=== PATIENT | female | born 1990 | race Hispanic/Latino ===

== ENCOUNTER → 2024-07-03 | Outpatient (CLI) | payer MEDICAID ==
[2024-07-03 17:05] LABS: CREATININE 0.6 mg/dL (0.5-1.0); POTASSIUM 3.9 mmol/L (3.5-5.1)
== END | disposition home or self-care (01) ==
LOC: LAB 11:51
PROVIDERS: ATTEND Physician Assistant
DX: I47.10 Supraventricular tachycardia, unspecified (principal)
CPT/HCPCS: 36415; 80048; 83735

== ENCOUNTER 2024-07-27 07:31 | Day surgery (SDC) | payer MEDICAID ==
[~2024-07-27] VITALS: Ht 154.9 cm; Wt 69.5 kg
[2024-07-27] VITALS (13 sets, daily range): BP systolic 100–133; BP diastolic 61–88; PULSE 57–72; RESP 15–18; TEMP 97.1–97.9
[~2024-07-27 07:31] MED LIST: 0.9%NACL 1000ML 1,000 ML IV ONE; ALPR2TAB7 PO; FERS325 PO; FLUD0.1T2 PO; IBUP-2070 PO; PANT40TA54 PO; SENN8.6T20 PO; [UNRECOGNIZED DRUG - CODE] PO
[2024-07-27] MEDS ORDERED: FENTanyl CITRate PF 50 MCG/1 ML 2ML VIAL ONE (10:01)
[2024-07-27] MEDS ORDERED: proPOFol 10 MG/ML 20ML VIAL IV ONE ×2 (10:02)
[2024-07-27] MEDS ORDERED: ondanSETRON 4MG INJ ONE (10:02)
== END 2024-07-27 11:40 | disposition home or self-care (01) ==
LOC: DAH 07:31 → ENDO 07:31
PROVIDERS: ATTEND Surgery
DX: R10.13 Epigastric pain (principal); K29.50 Unspecified chronic gastritis without bleeding; K22.89 Other specified disease of esophagus; K44.9 Diaphragmatic hernia without obstruction or gangrene; K21.9 Gastro-esophageal reflux disease without esophagitis; M79.7 Fibromyalgia; F41.9 Anxiety disorder, unspecified; I10 Essential (primary) hypertension; F32.A Depression, unspecified; J45.909 Unspecified asthma, uncomplicated; G43.909 Migraine, unspecified, not intractable, without status migrainosus; I47.10 Supraventricular tachycardia, unspecified; M19.90 Unspecified osteoarthritis, unspecified site; F43.10 Post-traumatic stress disorder, unspecified; G47.00 Insomnia, unspecified; Z98.51 Tubal ligation status; Z79.899 Other long term (current) drug therapy
CPT/HCPCS: 81025; 43239; J3010; J7030; J2704 ×2; J2405; A4620; A4215; J3490

== ENCOUNTER 2024-08-31 06:30 | Observation (INO) | payer MEDICAID ==
[2024-08-28 10:09] LABS: BASOPHILS # (AUTO) 0.02 K/uL (0.00-0.20); BASOPHILS % (AUTO) 0.5 % (0.0-5.0); EOSINOPHILS # (AUTO) 0.16 K/uL (0.00-0.70); EOSINOPHILS % (AUTO) 3.6 % (0.0-8.0); HEMATOCRIT 39.5 % (36-48); IMMATURE GRANULOCYTE ABSOLUTE 0.02 K/uL (0-1); LYMPHOCYTES # (AUTO) 1.1 K/uL (1.0-4.8); MEAN CORPUSCULAR HEMOGLOBIN 28.6 pg (27.0-33.0); MEAN CORPUSCULAR HGB CONC 32.4 g/dL (32.0-36.0); MEAN CORPUSCULAR VOLUME 88.4 fL (79-99); MONOCYTES # (AUTO) 0.3 K/uL (0.1-1.0); MONOCYTES % (AUTO) 6.1 % (3.0-13.0); NEUTROPHILS # (AUTO) 2.9 K/uL (1.8-7.7); NEUTROPHILS % (AUTO) 65.3 % (40.0-77.0); PLATELET COUNT (AUTO) 213 K/uL (130-400); RED BLOOD CELL COUNT(AUTO) 4.47 MIL/uL (4.00-5.50); WHITE BLOOD COUNT (AUTO) 4.4 K/uL (4.8-10.8)
[2024-08-28 10:17] LABS: CREATININE 0.5 mg/dL (0.5-1.0); POTASSIUM 3.9 mmol/L (3.5-5.1)
[2024-08-28 10:19] LABS: INR 0.97 (0.85-1.15); PROTHROMBIN TIME 10.3 SEC (9.6-11.6)
[2024-08-28 10:20] LABS: PARTIAL THROMBOPLASTIN TIME 28.6 SEC (26.3-35.5)
[2024-08-28 10:21] VITALS: BP 135/78; PULSE 75; RESP 17; TEMP 98.1
[~2024-08-31] VITALS: Ht 154.9 cm; Wt 66.9 kg
[2024-08-31] VITALS (33 sets, daily range): BP systolic 105–139; BP diastolic 62–97; PULSE 67–102; RESP 12–18; TEMP 97.1–98.5; O2SAT 94–98
[~2024-08-31 06:30] MED LIST changes: -0.9%NACL 1000ML 1,000 ML IV ONE; +PROP60TA20 PO
[2024-08-31] MEDS: ceFAZolin SODIUM 2 GM VIAL ONE (07:05)
[2024-08-31] MEDS: acetaMINOPHEN 100 ML ONE ×2 (08:13→13:25)
[2024-08-31] MEDS: LACTATED RINGERS 1000ML 1,000 ML IV ONE (08:13)
[2024-08-31] MEDS: GABAPENTIN 300 MG CAPSULE ONE ×2 (08:13→13:34)
[2024-08-31] MEDS ORDERED: LIDOCAINE PF 100MG/5ML (2%) SYRINGE 5ML ONE (09:18)
[2024-08-31] MEDS ORDERED: rocuRONium bROMide 10MG/1ML 5ML VL ONE (09:18)
[2024-08-31] MEDS ORDERED: proPOFol 10 MG/ML 20ML VIAL IV ONE (09:18)
[2024-08-31] MEDS ORDERED: FENTanyl CITRate PF 50 MCG/1 ML 2ML VIAL ONE (09:19)
[2024-08-31] MEDS ORDERED: ketaMINE 50MG/ML SYRINGE 50 MG/ML DISP.SYRIN ONE (09:20)
[2024-08-31] MEDS: SCOPOLAMINE HYDROBROMIDE 1 EACH ADH..PATCH TD ONE (10:10)
[2024-08-31] MEDS: FAMOTIDINE 20MG VIAL IV ONE (10:10)
[2024-08-31] MEDS ORDERED: ADENOSINE 6MG VIAL IV ONE (10:19)
[2024-08-31] MEDS ORDERED: MIDAZOLAM HCL 1 MG/ML 2ML VIAL ONE (10:24)
[2024-08-31] MEDS ORDERED: ePHEDrine SULFate 50 MG/ML AMPULE ONE (10:45)
[2024-08-31] MEDS: ceFAZolin SODIUM 2 GM VIAL IVPB ONE (11:00)
[2024-08-31] MEDS ORDERED: NEOSTIGMINE METHYLSULFATE 1MG/ML IV ONE (11:07)
[2024-08-31] MEDS ORDERED: GLYCOPYRROLATE 0.2 MG/ML 5 ML VIAL ONE (11:07)
[2024-08-31] MEDS: SUGAMMADEX SODIUM 200 MG/2 ML VIAL IV ONE (12:17)
--- NOTE | 2024-08-31 12:36 | OP ---
Operative Note: DATE OF PROCEDURE: 08/31/24 SURGEON: PUNEET SCHROEDER MD CLIENT SERVICE COORDINATOR: Abimael Schroeder MD PA-C ANESTHESIA: General and Local ANESTHESIOLOGIST/LEATHER GRADER: [facility] [place] PREOPERATIVE DIAGNOSIS: Large, symptomatic paraesophageal hiatal hernia POSTOPERATIVE DIAGNOSIS: As above SYNOPSIS: Paraesophageal hiatal hernia repair with mesh reinforcement, Jessica fundoplication, EGD performed without complication PROCEDURE: 1. Robotic assisted hiatal hernia repair with mesh reinforcement 2. Jessica fundoplication 3. EGD ESTIMATED BLOOD LOSS: Minimal, less than 30 cc INDICATIONS: As above DESCRIPTION OF PROCEDURE: After standard precautions and preparations were undertaken a Veress needle and optical trocar were used to enter the abdominal cavity. All other instruments were placed under direct vision. The robotic system was docked in the standard fashion. We began our dissection by opening pars flaccida and identifying the right bar of the diaphragm. From there we are able to identify and enter into a plane within the mediastinum that was nearly avascular. We developed this plane circumferentially to mobilize the hernia contents from the chest down into the peritoneal cavity. The entire stomach was in the patient's chest. The distal antrum pylorus were all that were visible through the hiatus with the case started. By the end of our dissection the EG junction was resting below the level of the hiatus without tension. We performed a hernia repair by suturing the right and left crura back in reapproximation once all the hernia contents were reduced. Care was taken not to over tighten the crura. We reinforced the crural repair with a Bard phasix st absorbable mesh reinforcement. The mesh was cut into a horseshoe fashion and sutured in place to prevent mesh migration. We wrapped the fundus circumferentially and it reached without any significant tension. So we performed a Jessica type fundoplication by suturing the fundus after pulling it through the retroesophageal window. Throughout the entire case my partner was utilizing the EGD scope to verify appropriate anatomic landmarks. At the end of the case he was able to traverse the area of the hernia repair and the wrap and enter into the stomach without any issue. I retroflex view demonstrated that the wrap was in place and that there was no sign of injury to the distal esophagus or proximal stomach. Prior to ending the case all instrument counts were verified as correct including needles and sponges. The patient tolerated the procedure well and was prepared for extubation and transferred to PACU in stable condition. PUNEET SCHROEDER MD August 31, 2024 12:36
--- NOTE | 2024-08-31 12:43 | PN ---
GENERAL SURGERY PROGRESS NOTE Date/Time Patient Seen: [08/31/2024 at 10:30 a.m. ] Problem List: [ ] Interval History: [Postop day 0. Pain tolerable with p.r.n. medication. ] Physical Examination: ABD: [Incisions clean, dry and intact, Dermabond in place Vital Signs (last 8hr) Date Time Temp Pulse Resp B/P (MAP) Pulse Ox O2 Delivery O2 Flow Rate FiO2 08/31/24 07:00 97.5 89 18 105/66 100 Room Air 21 Laboratory: [ ] Chemistry Labs: Test 08/31/24 07:00 Range/Units Serum Test, Qualitative NEGATIVE NEGATIVE Diagnostics / Radiology: [Copy/Paste Echos/Imaging Report here] Impression and Plan: [ Plan is for discharge home later today as long as patient tolerating p.o., ambulatory and pain under control. Discussed with the patient and family. They understand and agree.] BLOSSOM SCHROEDER August 31, 2024 12:43
[2024-08-31] MEDS: morPHINE 2 MG SYG ONE (12:47)
[2024-08-31] MEDS: ketOROlac 15MG/ML VIAL (15MG/ML) ONE ×2 (12:58→13:07)
[2024-08-31] MEDS ORDERED: PROCHLORPERAZINE 10MG/2ML INJ IV PRN (13:00)
[2024-08-31] MEDS ORDERED: hydroMORPHone 1 MG INJ IVP PRN (13:00)
[2024-08-31] MEDS: MIDAZOLAM HCL 1 MG/ML 2ML VIAL ONE (13:23)
[2024-08-31] MEDS: hydroMORPHone 1 MG INJ ONE (13:23)
[2024-08-31] MEDS: ondanSETRON 4MG INJ IVP PRN (16:16)
[2024-08-31] MEDS: LACTATED RINGERS 1000ML 1,000 ML IV SCH (16:19)
[2024-08-31] MEDS: hydroMORPHone 0.5 MG SYG (0.5MG/0.5ML) IVP PRN (16:23)
[2024-08-31] MEDS: FAMOTIDINE 20MG VIAL IV SCH (20:57)
[2024-09-01] VITALS (7 sets, daily range): BP systolic 104–131; BP diastolic 70–83; PULSE 73–92; RESP 16–18; TEMP 98.1–99.6; O2SAT 96–97
[2024-09-01] MEDS: ENOXAPARIN SODIUM 40 MG/0.4 ML SYRINGE SQ SCH (07:45)
[2024-09-01] MEDS: ketOROlac 15MG/ML VIAL (15MG/ML) IV PRN (07:48)
--- NOTE | 2024-09-01 09:17 | PN ---
GENERAL SURGERY PROGRESS NOTE Date/Time Patient Seen: [09/01/2024 9:00 a.m. ] Problem List: [ ] Interval History: [Postop day 1. Some epigastric discomfort, nausea. Having difficulty advancing to full liquid diet. No flatus or BMs just yet No fevers, chills, shortness of breath, chest pain] Current Medications Medications (Trade) Dose Ordered Sig/Christian Route Start Time Stop Time Status Last Admin Dose Admin Enoxaparin Sodium (Lovenox) 40 mg DAILY SQ 09/01/24 09:00 10/01/24 08:59 Famotidine (Pepcid 20mg Vial) 20 mg BID IV 08/31/24 21:00 09/30/24 20:59 09/01/24 07:45 20 MG Ketorolac Tromethamine (toRADol) 15 mg Q6H IV 09/01/24 09:30 09/05/24 12:59 UNV Lactated Ringer's 1,000 ml @ 150 mls/hr Q6H40M IV 08/31/24 13:00 09/30/24 12:59 09/01/24 07:51 150 MLS/HR Physical Examination: GENERAL: [No acute distress.] HEAD: [Normal with no signs of head trauma.] EYES: [PERRLA, EOMI, conjunctiva and sclera normal.] ENT: [Hearing grossly intact, normal oropharynx.] NECK: [Supple without JVD. There is no tenderness, lymphadenopathy, or masses. No thyromegaly. Normal carotid upstrokes without bruits.] LUNGS: [Clear breath sounds bilaterally. There are right basilar rales one third of the way up the chest. No wheezes, or rhonchi.] HEART: [Normal rate and rhythm. Normal S1 and S2 without mumurs, gallop or rub.] VASC: [Peripheral pulses +2 bilaterally.] ABD: [Appropriate tenderness to palpation, incisions clean dry and intact. No rebound or guarding] : [Not examined] LYMPH: [No lymphadenopathy noted.] EXT: [No clubbing, cyanosis or edema.] SKIN: [No rashes or lesions noted.] NEURO: [Awake, alert, and oriented x3. No focal sensory or strength deficits noted.] Vital Signs (last 8hr) Date Time Temp Pulse Resp B/P (MAP) Pulse Ox O2 Delivery O2 Flow Rate FiO2 09/01/24 07:56 96 Room Air* 0 21 09/01/24 07:00 98.6 73 17 104/70 100 Room Air 09/01/24 03:12 98.1 83 16 118/83 93 Room Air Laboratory: [ ] Chemistry Labs: Test 08/31/24 07:00 Range/Units Serum Test, Qualitative NEGATIVE NEGATIVE Diagnostics / Radiology: None at this time Impression and Plan: [ Post op day one from hiatal hernia repair with Jessica fundoplication. Patient having difficulty advancing to full liquid diet due to nausea and epigastric discomfort. Ambulating, voiding freely. No flatus or BM just yet. We will scheduled Toradol q.6 hours Keep patient on clear liquid diet Add Cepacol for throat discomfort Abdominal binder Continue ambulation This boy whom once he is tolerating liquids better and discomfort in the abdomen has improved, likely in the next 24 hours] FLORA HOLM MD September 01, 2024 09:17
[2024-09-01] MEDS: ketOROlac 15MG/ML VIAL (15MG/ML) IV SCH (09:30)
--- NOTE | 2024-09-01 10:48 | EKG ---
[facility] Test Date: 2024-08-31 Test Time: 13:41:44 Pat Name: BEBE RIBEIRO Department: [facility] Room: 222 1 Gender: F Analyst Sales: SARAH : 1990 Requested By: XI NEGRETE Order Number: [id number] Reading MD: Jo Gorman Measurements Intervals [place] Rate: 85 P: 14 OK: 156 QRS: 61 QRSD: 82 T: 32 QT: 400 QTc: 476 Interpretive Statements Normal sinus rhythm No previous ECG available for comparison Electronically Signed On 09-01-2024 14:46:53 CDT by Jo Gorman Please click the below link to view image of tracing.
--- NOTE | 2024-09-01 10:57 | NUR ---
DCP: HOME Pt rents a home with her 3 kids 12,4,3. Pt denies issues affording rent, utilities or food. Has food stamp assistance. Pt reports she remains able to complete her ADLS and IADLS without assistance. Uses no DME or in home care services. PCP is Inna Camacho and uses [facility] for rx needs. Pt denies dc needs and will return home at dc Addendum: 09/01/24 at 1058 by QING CM Amended: Links added.
[2024-09-01] MEDS: BENZOCAINE/MENTH/CETYLPYRD CL 1 EACH LOZENGE MM PRN (14:49)
[2024-09-01] MEDS: HYDROcod/acetaMINOPHEN 7.5/325 MG 15 ML UDCUP PO PRN (23:50)
[2024-09-02 00:23] VITALS: BP 94/49; PULSE 74; RESP 18; TEMP 97.9
[2024-09-02 04:24] VITALS: BP 126/77; PULSE 68; RESP 18; TEMP 98.4
[2024-09-02 07:00] VITALS: BP 121/75; PULSE 82; RESP 17; TEMP 97.9
[2024-09-02 07:20] VITALS: O2SAT 97
--- NOTE | 2024-09-02 09:20 | NUR ---
DR. FLORA HOLM HERE AND WROTE DISCHARGE ORDERS.
--- NOTE | 2024-09-02 09:48 | DS ---
Discharge Summary Hospital Course Patient is a 34-year-old female who was admitted from the outpatient setting for elective robotic assisted laparoscopic hiatal hernia repair on 08/31/2024. Now postop day two. Patient is progressing well, tolerating clear liquid diet, no nausea or vomiting. Ambulating, pain well controlled. Passing gas. No BM. No fevers, chills, shortness of breath, chest pain. Patient remains hemodynamically stable, afebrile. Normal sinus rhythm. Aer ating well on room air. Incisions clean dry and intact, abdomen is benign, appropriately tender to palpation. No rebound or guarding. Patient to continue liquid diet for seven days. Postop follow up already in place, postop medications already submitted. Avoid lifting more than 20 lb for a month. Return precautions given including fevers of 101.5 or higher, worsening abdominal pain, intractable nausea and vomiting, just any concerns about her overall health. Patient agrees with discharge FLORA HOLM MD September 02, 2024 09:48
--- NOTE | 2024-09-02 11:20 | NUR ---
PT WAS DISCHARGED AND PT WAS WANTING SOMETHING FOR PAIN AND DR. Mark HOLM WAS CALLED AND LEFT VOICE MAIL CONCERNING PAIN MED.
== END 2024-09-02 11:27 | disposition home or self-care (01) ==
LOC: DAH 06:30 → INTOOBSV 06:31 → DAHIP 06:31 → UNDOADMIN 12:58 → 2DH 14:05
PROVIDERS: ADMIT Surgery; ATTEND Surgery
DX: K44.9 Diaphragmatic hernia without obstruction or gangrene (principal); Z86.2 Personal history of diseases of the blood and blood-forming organs and certain disorders involving the immune mechanism; Z79.899 Other long term (current) drug therapy
CPT/HCPCS: 43282; S2900; 36415; 43235; 80048; 84703; 85025; 85610; 85730; 86850; 86900; 86901; 93005; 96374; 96375; 96376; G0378; J0153; J1171; J1650; J1885; J2003; J2250; J2270; J2405; J2704; J2710; J3010; J3490; J7120; A4213; A4215; A4216; A4221; A4222; A4223; A4600; A4663; A4930; A6260; C1781; J0690

== ENCOUNTER → 2024-10-30 | Outpatient (CLI) | payer MEDICAID ==
[~2024-10-30] MED LIST changes: -FERS325 PO; -FLUD0.1T2 PO; -IBUP-2070 PO; +IOHEXOL-350 75 ML VIAL IV ONE; -PANT40TA54 PO
--- NOTE | 2024-10-30 13:17 | HMCIMG ---
EXAM: CT Abdomen and Pelvis with Oral Contrast CLINICAL HISTORY: 34-year-old female with history of diaphragmatic hernia. TECHNIQUE: Axial computed tomography images of the abdomen and pelvis with oral contrast. Dose reduction technique was used including one or more of the following: automated exposure control, adjustment of mA and kV according to patient size, and/or iterative reconstruction. CONTRAST: Oral contrast provided. COMPARISON: None provided. FINDINGS: LUNG BASES: Atelectasis of the lung base. LIVER: Unremarkable. GALLBLADDER AND BILE DUCTS: Unremarkable. No calcified stone. No ductal dilation. PANCREAS: Unremarkable. SPLEEN: Unremarkable. ADRENAL GLANDS: Unremarkable. KIDNEYS, URETERS, AND BLADDER: Unremarkable. No hydronephrosis or nephrolithiasis. No ureteral or bladder calculi. STOMACH AND BOWEL: No obstruction. No wall thickening. No CT evidence of colitis or acute diverticulitis. Oral contrast in the stomach and small bowel to the level of the right colon. Large left side diaphragmatic hernia containing the fundus of the stomach. APPENDIX: Appendix is not seen. No secondary signs for appendicitis. PERITONEUM: No free fluid. No free air. LYMPH NODES: No lymphadenopathy. REPRODUCTIVE: Uterus and adnexa are unremarkable. VASCULATURE: No aortic aneurysm. ABDOMINAL WALL AND SOFT TISSUES: Unremarkable. BONES: No fracture or suspicious osseous abnormality. IMPRESSION: 1. Large left side diaphragmatic hernia containing the fundus of the stomach. 2. Appendix not visualized, but no secondary signs of appendicitis. /[place]
== END | disposition home or self-care (01) ==
LOC: RAH 10:18
PROVIDERS: ATTEND Surgery
DX: K44.9 Diaphragmatic hernia without obstruction or gangrene (principal); J98.11 Atelectasis
CPT/HCPCS: 74176; Q9967

== ENCOUNTER → 2024-11-27 | Outpatient (CLI) | payer MEDICAID ==
[~2024-11-27] MED LIST changes: -IOHEXOL-350 75 ML VIAL IV ONE
--- NOTE | 2024-11-28 20:10 | HMCIMG ---
Gastric Emptying Scan. EXAM: Nuclear Medicine Gastric Emptying Scan. INDICATION: Diaphragmatic hernia REFERENCE EXAMINATION: None TECHNIQUE: 2.1 mCi of Tc99m sulfur colloid with egg whites, 2 slices of bread/jam, 4 ounces of water. FINDINGS: Transit of radiopharmaceutical is not seen from the stomach into the small bowel. IMPRESSION: Scintigraphic findings suggest gastroparesis. /[place]
== END | disposition home or self-care (01) ==
LOC: RAH 07:25
PROVIDERS: ATTEND Surgery
DX: K44.9 Diaphragmatic hernia without obstruction or gangrene (principal); R63.4 Abnormal weight loss; R11.2 Nausea with vomiting, unspecified
CPT/HCPCS: 78264; A9541

== ENCOUNTER 2024-12-13 14:00 | Inpatient (IN) | payer MEDICAID ==
[2024-12-12 08:04] LABS: IMMATURE GRANULOCYTE ABSOLUTE 0.02 K/uL (0-1); NUCLEATED RED BLOOD CELLS 0.0 % (0.0-0.19); PLATELET COUNT (AUTO) 287 K/uL (130-400); RED BLOOD CELL COUNT(AUTO) 4.93 MIL/uL (4.00-5.50); RED CELL DISTRIBUTION WIDTH 13.8 % (11.0-15.5); WHITE BLOOD COUNT (AUTO) 4.7 K/uL (4.8-10.8)
[2024-12-12 08:11] LABS: CREATININE 0.6 mg/dL (0.5-1.0); GLOMERULAR FILTR. RATE CALC 121.0 mL/min (>90); GLUCOSE,RANDOM 103.0 mg/dL (70-105); SODIUM SERUM 134.0 mmol/L (136-145); UREA NITROGEN, BLOOD 8.0 mg/dL (7-18)
[2024-12-12 08:18] LABS: INR 0.98 (0.85-1.15)
[2024-12-12 09:05] VITALS: BP 120/83; PULSE 87; RESP 18; TEMP 98.8
--- NOTE | 2024-12-12 09:14 | EKG ---
[facility] Test Date: 2024-12-12 Test Time: 07:55:37 Pat Name: BEBE RIBEIRO Department: Patient ID: [facility] [id number] Room: Gender: F Cereal Supervisor: [id number] : 1990 Requested By: PUNEET SCHROEDER Order Number: [id number] Reading MD: Darryl Mcclain Measurements Intervals [place] Rate: 81 P: 31 IN: 133 QRS: 66 QRSD: 89 T: 47 QT: 374 QTc: 435 Interpretive Statements Sinus rhythm Compared to ECG 08/31/2024 13:41:44 No significant changes Electronically Signed On 12-12-2024 17:25:19 CDT by Darryl Mcclain Please click the below link to view image of tracing.
[~2024-12-13] VITALS: Ht 154.9 cm; Wt 61.4 kg
[~2024-12-13 14:00] MED LIST changes: +FERR-82 PO; +FLUD0.1T2 PO; +PANT40TA54 PO; +SUCR1ORA15 PO
[2024-12-14] VITALS (19 sets, daily range): BP systolic 119–154; BP diastolic 67–98; PULSE 75–108; RESP 16–22; TEMP 97.1–98.3
[2024-12-14] MEDS: LACTATED RINGERS 1000ML 1,000 ML IV ONE (10:16)
[2024-12-14] MEDS ORDERED: LIDOCAINE PF 100MG/5ML (2%) SYRINGE 5ML ONE (13:50)
[2024-12-14] MEDS ORDERED: MIDAZOLAM HCL 1 MG/ML 2ML VIAL ONE (13:50)
[2024-12-14] MEDS: SUGAMMADEX SODIUM 200 MG/2 ML VIAL IV ONE (18:14)
--- NOTE | 2024-12-14 18:58 | OP ---
Operative Note: DATE OF PROCEDURE: 12/14/24 SURGEON: PUNEET SCHROEDER MD WOOD CLUB NECK WHIPPER: Abimael Schroeder MD PA-C ANESTHESIA: General and Local ANESTHESIOLOGIST/SHOW CARD WRITER: [facility] [place] PREOPERATIVE DIAGNOSIS: Recurrent hiatal hernia and Severe Gastroparesis POSTOPERATIVE DIAGNOSIS: As above. SYNOPSIS: Revision of hiatal hernia, reduction of stomach in to abdominal cavity, partial gastrectomy and loop gastrojejunostomy performed without complication PROCEDURE: -Robotic assisted revision hiatal hernia repair, extensive lysis of adhesions >2 hrs -Partial Gastrectomy to decrease stomach volume and improve gastric emptying -Loop Gastro-jejunostomy to improve gastric emptying -EGD ESTIMATED BLOOD LOSS: min, <40cc INDICATIONS: Patient had a recent history of hiatal hernia with incarcerated stomach in the chest. At that time of her previous operation nearly the entire stomach was incarcerated in the chest. The stomach was reduced into the abdominal cavity and a hernia repair was undertaken with mesh reinforcement. Within the 1st few days after the operation the patient had a nausea and retchi ng fit and had an acute recurrence due to tearing of the hiatal repair. The patient felt the stitches tear and a change in the pressure of the hiatus(epigastrum) consistent with this retching episode as the cause of the recurrence. She returns for attempted re-repair and treatment to improve gastric emptying to minimize risks of recurrence DESCRIPTION OF PROCEDURE: After standard precautions and preparations were undertaken a Veress needle and optical trocar were used to enter the abdominal cavity. All other instruments were placed under direct vision. The robotic system was docked in the standard fashion. Upon entry into the abdomen and retraction of the liver we are able to see the area of the previous surgery. The patient still had the mesh in place on the hiatus in the area of the previous repair however it was obvious that the stitches had been torn through and did not hold. The hiatus was opened with what appeared to be an anterior recurrence however after further dissection was likely a combination of anterior recurrence and superior aspect of the retroesophageal hiatus recurrence as well. Over 2 hours of dissection was undertaken to attempt to reduce the stomach back into the abdominal cavity. Of note, the patient's fundoplication was pulled back up through the hiatus but the majority of the stomach remained in the abdominal cavity since the prior surgery. By the end of our dissection the GE junction was resting approximately 1-2 cm above the hiatus with a small portion of fundus above the hiatus as well. On multiple occasions we could easily drive the EGD scope down through the hiatus and into the stomach. The stomach was inflated with the air to get an assessment of the size of the stomach. It was extremely enlarged almost double the expected size. After careful consideration the decision was made to decrease the stomach volume in addition to creating the gastrojejunostomy to try to improve gastric emptying. I did not think he would be beneficial to the patient to re stitch the hiatus since the stomach could not fully be reduced into the abdominal cavity. A linear stapler with staple line reinforcement was used to divide the stomach to create our partial gastrectomy and reduced stomach volume. This was done from approximately the distal gastric body upwards towards the proximal gastric fundus. When this was complete the ligament of Treitz was identified and a loop of small bowel was brought up over over the transverse colon in an antecolic position and sutured to the dependent portion of the greater curve of the stomach. A gastrotomy and enterotomy were created and a linear stapler was used to create an anastomosis. The defect left behind by the stapler was sutured closed. An omental patch was placed to reinforced the closure. At this point in the operation we had reduced approximately 95% of the stomach into the abdominal cavity where it rested without significant tension, we had performed a partial gastrectomy to decrease the volume of stomach, and we had created our anastomosis to help improve gastric emptying. Leak test was performed by insufflating under fluid with no signs of leak or problem. Patient tolerated the procedure well and all instrument counts were verified as correct prior to ending the case. PUNEET SCHROEDER MD Dec 14, 2024 18:58
--- NOTE | 2024-12-14 19:02 | PN ---
GENERAL SURGERY PROGRESS NOTE Date/Time Patient Seen: [12/14/2024 at 7:00 p.m. ] Problem List: [ ] Interval History: [ Postop day 0. Pain tolerable with p.r.n. medication.] Physical Examination: GENERAL: [No acute distress.] Laboratory: [ ] Diagnostics / Radiology: [Copy/Paste Echos/Imaging Report here] Impression and Plan: [Plan is for discharge home in the next day or two as long as patient tolerating p.o., ambulatory and pain under control. Upper GI order for tomorrow, 12/15/2024, morning. Discussed with the patient and family. They understand and agree. ] BLOSSOM SCHROEDER Dec 14, 2024 19:02
[2024-12-14] MEDS: PROMETHAZINE HCL 25 MG/ML 1ML AMPULE IM SCH (19:10)
[2024-12-14] MEDS ORDERED: PROCHLORPERAZINE 10MG/2ML INJ IV PRN (19:30)
[2024-12-14] MEDS: FAMOTIDINE 20MG VIAL IV SCH (20:08)
[2024-12-14] MEDS: LACTATED RINGERS 1000ML 1,000 ML IV SCH (20:09)
[2024-12-14] MEDS: HYDROcod/acetaMINOPHEN 7.5/325 MG 15 ML UDCUP PO PRN (21:39)
[2024-12-15] VITALS (10 sets, daily range): BP systolic 111–128; BP diastolic 69–93; PULSE 75–99; RESP 15–20; TEMP 97.5–98.6; O2SAT 98
--- NOTE | 2024-12-15 | NUR ---
NOTIFIED DR SCHROEDER PATIENT REQUESTING STRONGER PAIN MEDICATION DUE TO NO PAIN RELIEF IN PROVIDED PAIN MEDICATIONS. PATIENT REFUSED TORADOL. RECEIVED ORDERS TO INPUT 1MG DILAUDID Q4H PRN.
--- NOTE | 2024-12-15 01:50 | NUR ---
OVERRIDE DILAUDID 1MG OMNICELL NOT DISPLAYING ACTIVE ORDER OF DILAUDID 1MG. NOTIFIED PHARMACY. STATED DUE TO DOWNTIME. OVERRODE DILAUDID 1MG AND GIVEN TO PATIENT AT THIS TIME.
[2024-12-15] MEDS: ENOXAPARIN SODIUM 30 MG/0.3 ML SQ SCH (05:12)
--- NOTE | 2024-12-15 05:33 | NUR ---
OVERRIDE DILAUDID PATIENT COMPLAINING OF 8/10 SHARP PAIN TO ABDOMEN. ACTIVE ORDER DILAUDID 1MG NOT DISPLAYING IN OMNICELL. NOTIFIED PHARMACY. PHARMACY ATTEMPTED TO REFRESH ORDER. OMNICELL STILL NOT DISPLAYING ORDER. OVERRODE DILAUDID 1MG AND GAVE MEDICATION TO PATIENT AT THIS TIME. PATIENT REFUSED LOVENOX. ATTEMPTED TO EDUCATE PATIENT REGARDING IMPORTANCE OF PREVENTING THROMBI FORMATION AFTER SURGERY. PATIENT CONTINUES TO REFUSE.
[2024-12-15] MEDS: PROCHLORPERAZINE 10MG/2ML INJ IV PRN (08:23)
--- NOTE | 2024-12-15 09:30 | NUR ---
Approached patient for PT eval. Pt drowsy but awakes easily. Pt reports severe pain 8/10 and then drifts back to sleep. Nurse aware.PT to follow as able
--- NOTE | 2024-12-15 12:30 | NUR ---
TRANSFER REQUEST FOR IR FOR UPPER GI SERIES PER REGAN CH RN
--- NOTE | 2024-12-15 13:15 | NUR ---
TRANSFER CALL PLACED TO [facility] SPOKE WITH MEERA HS STATES IR DOCTOR GONE FOR THE DAY AND WILL BE BACK TILL WEDNESDAY. REGAN MARI
--- NOTE | 2024-12-15 13:35 | NUR ---
TRANSFER CALL PLACE TO [facility] SPOKE WITH STATES NO IR SERVICE . REGAN MARI
--- NOTE | 2024-12-15 13:52 | NUR ---
TRANSFER CALL PLACE TO [facility] [place]POKE WITH VALE KRAMER IR DOCTOR DONE FOR THE DAY AND WILL BE BACK TILL WEDNESDAY. CLINICAL CLINICAL NURSE MANAGER MADE AWARE AND TO INFORM MD. REGAN MARI
--- NOTE | 2024-12-15 14:10 | NUR ---
TRANSFER CANCELLED PER CLINICAL NANNY CAREGIVER IR PROCEDURE WILL BE DONE HERE AT [facility] [place]. REGAN MARI
[2024-12-15] MEDS ORDERED: DIATR MEGLU/DIATRIZOATE SODIUM 30 ML BOTTLE ONE (14:16)
--- NOTE | 2024-12-15 15:04 | PN ---
GENERAL SURGERY PROGRESS NOTE Date/Time Patient Seen: [ ] Problem List: Severe gastroparesis Hiatal hernia This is a 34-year-old female patient with past medical history for hypertension, anxiety, depression, asthma, migraines, sleep apnea, SVT, fibromyalgia, PTSD, GERD, severe gastroparesis, and hiatal hernia who underwent a revision of hiatal hernia, reduction of stomach in two abdominal cavity, partial gastrectomy, and loop gastrojejunostomy to improve gastric emptying, and an EGD. Patient underwent an upper GI study which was negative for any leaks. She is resting in bed in no acute distress. Bilateral breath sounds are clear abdomen is soft and mildly tender. Abdominal incisions are dry and intact open air with Dermabond. Active bowel sounds are present. Patient reports passing flatus and having two small bowel movements. She has been tolerating clear liquids without any nausea or vomiting. Oriented to plan of care and recommended small frequent sips of clear fluids every 15-30 minutes. Courage ambulation and plan for discharge for tomorrow. Patient verbalized understanding and agreement Current Medications Medications (Trade) Dose Ordered Sig/Christian Route Start Time Stop Time Status Last Admin Dose Admin Enoxaparin Sodium (Lovenox) 40 mg DAILY06 SQ 12/15/24 06:00 01/14/25 05:59 Famotidine (Pepcid 20mg Vial) 20 mg BID IV 12/14/24 21:00 01/13/25 20:59 12/15/24 08:23 20 MG Lactated Ringer's 1,000 ml @ 150 mls/hr Q6H40M IV 12/14/24 19:00 01/13/25 18:59 12/15/24 03:24 150 MLS/HR Promethazine HCl (Phenergan) 25 mg ONCE IM 12/14/24 19:10 12/14/24 23:30 DC Physical Examination: GEN: Awake, alert, oriented in person, time and place, and in no acute distress. HEENT: No rhinorrhea. Oral pharyngeal mucosa is pink, moist and within normal limits. CHEST: Inspection, and palpation of the chest were unremarkable. Lung auscultation revealed normal breath sounds bilaterally. CARDIAC: PMI is within normal limits. Heart sounds are regular. ABD: Soft, non-tender and not distended. No peritoneal signs on palpation. Incisions dry and intact open to air with dermabond. Normal bowel sounds. Last bm 12/15/24 EXT: No cyanosis or clubbing. No edema. SKIN: Intact. No rashes. JOINTS: No evidence of synovitis or acute arthritis. NEURO: Alert and oriented to name, place and person. Cranial nerve examination is unremarkable. No focal motor deficits. Normal speech. Strength is normal.] Vital Signs (last 8hr) Date Time Temp Pulse Resp B/P (MAP) Pulse Ox O2 Delivery O2 Flow Rate FiO2 12/15/24 12:00 97.5 89 16 111/71 98 Room Air 12/15/24 08:23 98 Room Air* 0 21 12/15/24 08:00 98.4 99 15 124/93 100 Room Air Laboratory: [ ] Diagnostics / Radiology: [Copy/Paste Echos/Imaging Report here] Impression and Plan: Severe gastroparesis Hiatal hernia Hypertension GERD Plan Case discussed with Dr. Collins Clear liquid diet Encourage ambulation Encourage IS exercises Pain meds as needed Antiemetics p.r.n. and report any emesis Plan for disposition in the next 24 hours Please call with questions, concerns, and change in clinical status.] ALEXIA POWELL NP Dec 15, 2024 15:04
--- NOTE | 2024-12-15 16:20 | HMCIMG ---
Gastrografin UPPER GI SERIES with small bowel follow-through: Finding: The study was performed using provocative maneuvers After swallowing Gastrografin, there is no definite intrinsic or extrinsic lesion seen in the esophagus. The stomach is normal in size, shape, and configuration. The rugal folds appear to be normal. The duodenal bulb, duodenal sweep, and upper jejunum appear to be normal. The small bowel follow-through demonstrate normal transit time with Gastrografin in the right colon 20 minutes. Fluoroscopy time: 1.2 minutes IMPRESSION: Normal Gastrografin upper GI with small bowel follow-through with no leak identified..
[2024-12-16 04:00] VITALS: BP 108/77; PULSE 81; RESP 16; TEMP 97.8
[2024-12-16 08:00] VITALS: BP 142/92; PULSE 106; RESP 15; TEMP 98.6; O2SAT 96
--- NOTE | 2024-12-16 08:00 | NUR ---
Reported to patient room to notify him that diet had been updated and the kitchen had been notified. Patient requesting to speak with Hospital Admnistrator and would like the physician to come by his room immediately, does not want a nurse practitioner or physician chiropractor assistant. I let patient know that I would send a message to physician regarding his request. [employer] answering service phoned. Pending response.
--- NOTE | 2024-12-16 08:18 | DS ---
Discharge Summary Assessment Severe gastroparesis Hiatal hernia Hypertension GERD Hospital Course No acute events overnight. Patient's vital signs have remained stable. Patient is tolerating clear fluids without any nausea or vomiting. Pain has been controlled. Patient has ambulated without difficulties, has passed flatus and has had BMs. Home care instructions given with ER warnings Patient is to follow-up at [place] digestive specialist [place] office on 12/21 2024, at 11:30 a.m. Patient verbalized understanding and agreement. ALEXIA POWELL NP Dec 16, 2024 08:18
== END 2024-12-16 12:30 | disposition home or self-care (01) | DRG 220 ==
LOC: DAHIP 12-14 09:53 → 4AH 12-14 19:45
PROVIDERS: ADMIT Surgery; ATTEND Surgery
PROC: 0D164ZA Bypass Stomach to Jejunum, Percutaneous Endoscopic Approach (ICD-10-PCS; 2024-12-14)
PROC: 0BQT4ZZ Repair Diaphragm, Percutaneous Endoscopic Approach (ICD-10-PCS; principal; 2024-12-14 14:05)
PROC: 0DB64ZZ Excision of Stomach, Percutaneous Endoscopic Approach (ICD-10-PCS; 2024-12-14 14:05)
PROC: 8E0W4CZ Robotic Assisted Procedure of Trunk Region, Percutaneous Endoscopic Approach (ICD-10-PCS; 2024-12-14 14:05)
PROC: 0DJ08ZZ Inspection of Upper Intestinal Tract, Via Natural or Artificial Opening Endoscopic (ICD-10-PCS; 2024-12-14 14:05)
DX: K44.9 Diaphragmatic hernia without obstruction or gangrene (principal); F32.A Depression, unspecified; K31.84 Gastroparesis; F41.9 Anxiety disorder, unspecified; F43.10 Post-traumatic stress disorder, unspecified; I10 Essential (primary) hypertension; J45.909 Unspecified asthma, uncomplicated; K21.9 Gastro-esophageal reflux disease without esophagitis; G43.909 Migraine, unspecified, not intractable, without status migrainosus
CPT/HCPCS: 36415; 43235; 74240; 80048; 84703; 85025; 85610; 85730; 86850; 86900; 86901; 88302; 88307; 93005; G0378; J0780; J1100; J1171; J1650; J2003; J2250; J2405; J2704; J2765; J3010; J3490; J7120; Q9963; A4213; A4215; A4216; A4221; A4222; A4223; A4600; A4663; A4930; A6260; J0665; J0690; L0625

== ENCOUNTER → 2025-02-19 | Outpatient (CLI) | payer MEDICAID ==
--- NOTE | 2025-02-19 10:05 | HMCIMG ---
DOUBLE CONTRAST UPPER GI SERIES: CLINICAL HISTORY: Diaphragmatic hernia without obstruction or gangrene Finding: The study was performed using provocative maneuvers After swallowing effervescent crystal and thick barium, there is no definite intrinsic or extrinsic lesion seen in the esophagus. Most of the stomach is noted to be in the chest. There is a bypass surgery which appears to be patent.. The upper jejunum appear to be normal. There is a right-sided Port-A-Cath in place. Fluoroscopy time: 0.9 minutes. IMPRESSION: Gastric bypass surgery Large hiatal hernia with most of stomach in the chest. There is mild esophageal reflux..
== END | disposition home or self-care (01) ==
LOC: RAH 07:59
PROVIDERS: ATTEND Surgery
DX: K21.9 Gastro-esophageal reflux disease without esophagitis (principal); K44.9 Diaphragmatic hernia without obstruction or gangrene; Z98.84 Bariatric surgery status
CPT/HCPCS: 74240